=== PATIENT | female | born 1935 | race African-American/Black ===

== ENCOUNTER 2018-04-16 15:54 | Inpatient (IN) | payer BC, MEDICARE ==
[~2018-04-16] VITALS: Ht 167.6 cm; Wt 86.8 kg
[~2018-04-16 15:54] MED LIST: ATEN-176; GLIM4TAB2; HYDR25TA; LEVO75TA7; SIMV40TA2
[2018-04-16] MEDS ORDERED: SODIUM CHLORIDE 0.9% 1,000 ML IV ONE (16:11)
[2018-04-16] MEDS ORDERED: ONDANSETRON HCL 4MG/2ML INJ IV STA (16:11)
[2018-04-16 16:56] LABS: BASOPHILS % 0.4 % (0.0-2.0); EOSINOPHILS % 0.8 % (0.0-5.0); HEMATOCRIT. 41.8 % (36.0-48.0); LYMPHOCYTES % 36.7 % (20.0-50.0); MEAN CORPUSCULAR HEMOGLOBIN 30.5 pg (28.0-32.0); MEAN CORPUSCULAR VOLUME 91.3 fL (81.0-99.0); MONOCYTES % 7.4 % (2.0-8.0); NEUTROPHILS % 54.7 % (40.0-76.0); PLATELET 158 x1000/uL (130-400); RED BLOOD CELL COUNT 4.58 mill/uL (4.2-5.4); RED CELL DISTRIBUTION WIDTH 13.7 % (11.6-14.6)
[2018-04-16 17:01] LABS: CHLORIDE 106 mEq/L (98-107)
[2018-04-16 18:58] LABS: CLARITY URINE CLEAR (CLEAR); COLOR URINE YELLOW (YELLOW); KETONES URINE TRACE (NEGATIVE); LEUKOCYTE ESTERASE URINE NEGATIVE (NEGATIVE); NITRITE URINE NEGATIVE (NEGATIVE); OCCULT BLOOD URINE NEGATIVE (NEGATIVE); PH URINE 7.5 (4.5-8.0); PROTEIN URINE NEGATIVE (NEGATIVE); SPECIFIC GRAVITY URINE 1.013 (1.005-1.030)
[2018-04-16] MEDS ORDERED: ACETAMINOPHEN 650MG/20.3ML UDC PO ONE (20:00)
[2018-04-16] MEDS ORDERED: ACETAMINOPHEN 325MG TABLET PO PRN (22:45)
[2018-04-16] MEDS ORDERED: MAGNESIUM/ALUMINUM HYDROXIDE/SIMETHICONE 30ML UDC PO PRN (22:45)
[2018-04-16] MEDS ORDERED: CLONIDINE 0.1MG TABLET PO PRN (22:45)
[2018-04-16] MEDS ORDERED: MECLIZINE 25MG TABLET PO PRN (22:45)
[2018-04-16] MEDS ORDERED: HYDRALAZINE 20MG/ML VIAL IV PRN (22:45)
[2018-04-16] MEDS ORDERED: IPRATROPIUM/ALBUTEROL 0.5-3(2.5)MG/3ML NEB INH PRN (22:45)
[2018-04-16] MEDS ORDERED: ONDANSETRON HCL 4MG/2ML INJ IV PRN (22:45)
[2018-04-16] MEDS ORDERED: DIPHENHYDRAMINE 50MG/ML VIAL IV PRN (22:45)
[2018-04-16] MEDS ORDERED: LORAZEPAM 2MG/ML CPJ IV PRN (22:45)
[2018-04-16] MEDS ORDERED: GUAIFENESIN 200MG/10ML SUGAR FREE UDC PO PRN (22:45)
[2018-04-16] MEDS ORDERED: HYDROCODONE/ACETAMINOPHEN 5/325MG TABLET PO PRN (22:45)
[2018-04-16] MEDS ORDERED: HYDROMORPHONE HCL/PF 2MG/ML CPJ IV PRN (22:45)
[2018-04-16] MEDS ORDERED: NA PHOS,M-B/NA PHOS,DI-BA ENEMA 118ML PR PRN (22:45)
[2018-04-16] MEDS ORDERED: DOCUSATE SODIUM 100MG CAPSULE PO PRN (22:45)
[2018-04-17] VITALS (7 sets, daily range): BP systolic 113–164; BP diastolic 62–87
[2018-04-17] MEDS ORDERED: POTASSIUM CHLORIDE 20MEQ TABLET SR PO SCH (01:25)
[2018-04-17] MEDS ORDERED: DEXTROSE 50% WATER 50ML SYRINGE IV PRN (02:00)
[2018-04-17] MEDS: BLOOD SUGAR DIAGNOSTIC STRIP TEST SCH ×4 (05:05→21:53)
[2018-04-17] MEDS: SODIUM CHLORIDE 0.9% INJ 3ML FLUSH IVF SCH ×3 (05:05→21:54)
[2018-04-17 07:10] LABS: BASOPHILS % 0.4 % (0.0-2.0); EOSINOPHILS % 0.8 % (0.0-5.0); HEMATOCRIT. 39.3 % (36.0-48.0); HEMOGLOBIN. 13.5 g/dL (12.0-16.0); LYMPHOCYTES % 28.6 % (20.0-50.0); MEAN CORPUSCULAR HEMOGLOBIN 31.3 pg (28.0-32.0); MONOCYTES % 12.6 % (2.0-8.0); NEUTROPHILS % 57.6 % (40.0-76.0); PLATELET 147 x1000/uL (130-400); RED BLOOD CELL COUNT 4.31 mill/uL (4.2-5.4); RED CELL DISTRIBUTION WIDTH 13.7 % (11.6-14.6)
[2018-04-17 07:32] LABS: CHLORIDE 108 mEq/L (98-107)
[2018-04-17 07:48] LABS: LDL CHOLESTEROL 70 mg/dL (5-100)
[2018-04-17 07:50] LABS: CREATINE KINASE 683 IU/L (26-192); CREATINE KINASE MB FRACTION 13.5 ng/mL (0.5-3.6)
[2018-04-17 07:52] LABS: HDL CHOLESTEROL 51 mg/dL (40-59)
[2018-04-17 07:54] LABS: T4 FREE 1.06 ng/dL (0.76-1.46)
[2018-04-17] MEDS: INSULIN LISPRO 100 UNITS/ML SUBCUT SCH ×4 (08:07→21:00)
[2018-04-17] MEDS: ENOXAPARIN 40MG/0.4ML SYR SUBCUT SCH (09:00)
[2018-04-17] MEDS: ASPIRIN 81MG EC TABLET PO SCH (09:29)
[2018-04-17] MEDS ORDERED: REGADENOSON 0.4 MG/5 ML IV ONE (09:45)
[2018-04-17 15:21] LABS: CREATINE KINASE MB FRACTION 9.4 ng/mL (0.5-3.6)
[2018-04-17 15:22] LABS: T4 FREE 1.03 ng/dL (0.76-1.46)
[2018-04-18] VITALS: BP 142/61
[2018-04-18 04:00] VITALS: BP 137/50
[2018-04-18] MEDS: SODIUM CHLORIDE 0.9% INJ 3ML FLUSH IVF SCH (05:16)
[2018-04-18] MEDS: BLOOD SUGAR DIAGNOSTIC STRIP TEST SCH ×2 (06:40→12:00)
[2018-04-18 08:00] VITALS: BP 140/80
[2018-04-18] MEDS: ASPIRIN 81MG EC TABLET PO SCH (09:42)
[2018-04-18] MEDS ORDERED: SODIUM CHLORIDE 0.9% 1,000 ML IV SCH (10:00)
[2018-04-18] MEDS: ENOXAPARIN 40MG/0.4ML SYR SUBCUT SCH (10:13)
[2018-04-18] MEDS: INSULIN LISPRO 100 UNITS/ML SUBCUT SCH (10:30)
[2018-04-18 11:21] VITALS: BP 140/80
== END 2018-04-18 12:25 | disposition home or self-care (01) | DRG 312 ==
LOC: ER 15:54 → 7WST 21:44 → EDBEDREQ 21:45 → EDBEDREQTM 21:45 → ENRESERV 22:10
PROVIDERS: ADMIT Internal Medicine; ATTEND Internal Medicine
DX: R55 Syncope and collapse (principal); R42 Dizziness and giddiness; E03.9 Hypothyroidism, unspecified; E78.5 Hyperlipidemia, unspecified; E87.6 Hypokalemia; I10 Essential (primary) hypertension; Z96.652 Presence of left artificial knee joint; E11.9 Type 2 diabetes mellitus without complications; H91.90 Unspecified hearing loss, unspecified ear; Z79.84 Long term (current) use of oral hypoglycemic drugs; Z90.710 Acquired absence of both cervix and uterus; Z79.899 Other long term (current) drug therapy
CPT/HCPCS: 36415; 71045; 80061; 82550; 82553; 82962; 83036; 83880; 84439; 84443; 84484; 85379; 93005; 93306; 93880; 96361; 96374; 99285; J1650; J1815; J2405; J2785; J7030